=== PATIENT | female | born 1975 | race Caucasian/White ===

== ENCOUNTER → 2020-07-06 | Outpatient (CLI) | payer BC ==
[~2020-07-06] VITALS: Ht 160 cm; Wt 52.2 kg
[~2020-07-06] MED LIST: CALCIUM; FISHOIL; FLEXERIL PO; IBU600 MG PO; KRILL OIL 5001 EAC1 PO; MOVE FREE JOIN1 EACH PO; VITAMIN D31250 MC1 PO; VITAMIN D400 UNI1
[2020-07-06 14:26] VITALS: BP 128/73
--- NOTE | 2020-07-06 14:47 | NUR ---
Pain Clinic Assessment: 1. History of Osteoarthritis: Not Applicable History of Rheumatoid Arthritis: Not Applicable 2. Height: 5 ft. 3 in. 160.0 cm. Weight: 115.0 lb. oz. 52.164 kg. Patient's BMI: 20.4 3. Vital Signs: BP: 128/73 Pulse: 92 Resp: 14 Temp: 02 Sat: 100 ECG Mon: 4. Pain Intensity: 4 5. Fall Risk: Dizziness: N Needs help standing or walking: N Fallen in the last 3 months: N Fall risk comments: 6. Patient on Blood Thinner: None 7. History of Hypertension: N 8. Opioid Therapy greater than 6 weeks: N Opiate Contract Signed: 9. Risk Assessment Tool Provided: LOW-0 10. Functional Assessment Tool: 11. Recreational Drug Use: Never Drug Type: Tobacco Use: Former Smoker Tobacco Type: Amount or Packs/day: How Many Years: Alcohol Use: Yes Frequency: Weekly Quant: DRINKS MAGED IN COFFEE
--- NOTE | 2020-07-07 11:01 | HPC ---
[facility] [address] [address] PAIN MANAGEMENT CONSULTATION Name: SEAN SAMAYOA Room #: REG [facility].#: [id number] Admission: 07/06/20 Attend Phys: Alan Marin DO Discharge: Date of : 79 Report #: [id number] THIS REPORT FOR: cc: Audra Kumar DNP, Mary E. DNP Johnson, James E. DO ~ DATE OF SERVICE: 07/06/2020 REFERRING PHYSICIAN: Audra Kumar NP CHIEF COMPLAINT: Low back pain, left lower extremity pain with paresthesias. HISTORY OF PRESENT ILLNESS: As you know, the patient is a very pleasant 45-year-old female who returns to our clinic at our [facility] office for recurrent low back pain, left lower extremity pain with paresthesias. The patient was last seen in our clinic at [facility] in 2017 where she was diagnosed with lumbar radiculopathy secondary to the displacement of lumbar intervertebral disk and compression upon a nerve root. She underwent epidural injections times 2 and did ultimately receive good improvement in analgesia. She states she was in her normal state of health until recently where she began to experience recurrence of left low back pain, left lower extremity pain. She states her pain began spontaneously upon arising from bed on 06/24/2020. The patient denies injury or trauma that may have led to symptom development. 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 She continues to experience pain to the level that she was ultimately referred back to our clinic at our [facility] office to discuss treatment options for recurrent lumbar radiculopathy. The patient indicates today her pain is constant with intermittent exacerbations. She describes her pain as burning, shooting, sharp, numbness and tingling. She places current pain score 4/10, daily average of 4/10, worst pain has been 8/10. The patient states that bending, sneezing and stretching exacerbates symptoms. She states that lying on her side with her knees bent tend to improve pain. She has been referred to our clinic for recurrent lumbar radiculopathy with increased intensity and distributional change. PAST MEDICAL HISTORY: None. PAST SURGICAL HISTORY: 1. Breast augmentation. 2. Eye surgery. [address] [address] PAIN MANAGEMENT CONSULTATION Name: SEAN SAMAYOA Room #: REG CLI [facility]#: [id number] Admission: 07/06/20 Attend Phys: Alan Marin DO Discharge: Date of : 79 Report #: [id number] 3. Tympanoplasty. SOCIAL HISTORY: The patient denies tobacco, IV or illicit drug use. She admits to occasional alcohol beverage. 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 She is unaccompanied today. Pain impact score 25/70, cius-st-eejcjujw interference of daily activities secondary to pain. REVIEW OF SYSTEMS: Positive for low back pain, left lower extremity pain with paresthesias. All other review of systems negative per 12-point review of systems other than those listed in history of present illness. ALLERGIES: No known drug allergies. CURRENT MEDICATIONS: Cholecalciferol 1250 mcg per day, Krill oil 500 mg once a day, glucosamine and chondroitin 1 tab per day, ibuprofen 600 mg once a day, Flexeril 10 mg t.i.d. p.r.n. muscle spasms. IMAGING: No new imaging available. PHYSICAL EXAMINATION: VITAL SIGNS: Blood pressure 128/73, pulse 92, respiratory rate 14 and unlabored. The patient is 100% on room air. Height 5 feet 3 inches tall, weight 115 pounds, BMI calculated 20.4. GENERAL: Well-developed, well-nourished, well-hydrated 45-year-old female appearing stated age, placing current pain score 4/10. HEENT: Normocephalic, atraumatic. Pupils equal, round and reactive. Extraocular muscles are intact. Sclerae nonicteric without injection. NEUROLOGIC: Cranial nerves 2-12 grossly intact. Speech is fluent. LUNGS: Appear clear. No wheeze, rhonchi or rales. CARDIOVASCULAR: Regular. No appreciable gallop, no rub. ABDOMEN: Soft, nontender. EXTREMITIES: Show no clubbing, no cyanosis, no edema. MUSCULOSKELETAL: The patient has tenderness to palpation over the lower lumbar spine. left side specifically. No spinous process tenderness. Muscle bulk and tone is equal and symmetrical in lower extremities. Strength is equal and symmetrical 5/5. Slight giveaway strength noted with hip flexion due to pain on the left when compared to the right. Seated straight leg raising positive on the left at approximately 70-degree angle. Supine straight leg raising is positive on the left at 70-degree angle. Ankle clonus negative. Babinski is negative. Gait is mildly antalgic favoring left lower extremity. She is intact to light touch from L1 through S2 dermatomes. ASSESSMENT: [facility] [address] [place] [address] PAIN MANAGEMENT CONSULTATION Name: SEAN SAMAYOA Room #: REG CL [facility]#: [id number] Admission: 07/06/20 Attend Phys: Alan Marin DO Discharge: Date of : 79 Report #: [id number] 1. Symptomatic lumbar radiculopathy. 2. Lumbosacral spondylosis with radiculopathy. PLAN: 1. Based on today's physical exam and history the patient has provided, the description the patient uses in regards to pain as well as the distribution of symptoms, likely source of the patient's pain is lumbar radiculopathy. The patient underwent MRI lumbar spine on 03/29/2017 which showed L1-L2, L3-L4 unremarkable. L4-L5 had annular disk bulge with flattening of the ventral thecal sac. There was no neural foraminal stenosis at that time. At L5-S1, there was an annular disk bulge with moderate sized caudally migrated left paracentral disk herniation with effacement of the anterior epidural space with mild compression of the left S1 nerve root within the left lateral recess of L5. The patient had recurrence of symptoms with a similar distribution starting 06/24/2020. The patient denied injury or trauma that may have led to symptom development. Given the intensity of symptoms the patient is experiencing and the slight distribution change with now radiation from the left low back all the way to the foot and increasing cramping sensation in the calf, I would recommend the treatment options as follows: We discussed with the patient the fact that the imaging we have currently is greater than 3 years old and that those findings have likely changed since that time and thus treatment options may vary based on those new findings. I do feel that imaging would be necessary, but we did discuss the general treatment options today. The following was discussed with the patient today. We discussed physical therapy, stretching exercises and core strengthening as a treatment option. We discussed medication management to address neuropathic symptoms with amitriptyline, nortriptyline, Cymbalta, Lyrica or gabapentin. We discussed epidural injections under fluoroscopic guidance to address acute lumbar radicular symptoms in hopes of improving pain. We discussed spinal cord stimulator therapy and ultimately surgical options. The patient is considering her options including surgery, but does wish further imaging to determine whether or not surgical options would be necessary or whether more conservative treatment options would be beneficial. 2. The patient will be sent for x-ray imaging of the lumbar spine. This will be done immediately. We will review those findings once they are available. We will contact the patient with those findings. 3. We recommend the patient to undergo MRI of the lumbar spine without contrast. We wish to further evaluate the findings at the L5-S1 level, which showed a caudal migration of disk into the left lateral recess at L5-S1 and determine if this has progressed. If progression has been noted, surgical options may be necessary. The patient is amenable to discussing surgical options if the changes are noted. We recommend the patient to undergo MRI imaging as quickly as possible. Once this imaging has been completed, we will contact the patient or have her return to discuss the findings and the options of treatment based on those objective findings and the objective findings of [address] [address] PAIN MANAGEMENT CONSULTATION Name: SEAN SAMAYOA Room #: REG [facility] Wall#: [id number] Admission: 07/06/20 Attend Phys: Alan Marin DO Discharge: Date of : 79 Report #: [id number] physical exam. The patient was provided a prescription for MRI lumbar spine without contrast today. 4. No medication changes made at today's visit. We did discuss the possibility of initiating neuropathic medications, but the patient is resistant to initiate medication that might cause any cognition changes. I did advise that neuropathic medications all can have cognitive slowing as part of their side effects and she is resistant to initiate the therapy at this time. 5. We will see the patient back in followup visit once the imaging has been obtained. The imaging will be available on the cloud for the patient once it has been completed and we can review those findings at her earliest convenience. 6. We wish to thank the referring physician for the opportunity to see the patient in consultation. We will keep you apprised of the patient's progress as we address lumbar radiculopathy. Again, we wish to thank you for the opportunity to see this patient in consultation. <ELECTRONICALLY SIGNED> By: Alan Marin DO 07/07/20 1101 [id number] Alan Marin DO /nt
== END ==
LOC: PAIN 06:59
PROVIDERS: ATTEND Anesthesiology Pain Medicine
DX: M47.26 Other spondylosis with radiculopathy, lumbar region (principal); M79.662 Pain in left lower leg; R20.2 Paresthesia of skin; Z79.891 Long term (current) use of opiate analgesic; Z79.899 Other long term (current) drug therapy

== ENCOUNTER → 2020-08-23 | Outpatient (CLI) | payer BC | LOC: LAB 09:59 | PROVIDERS: ATTEND Internal Medicine Cardiovascular Disease | DX: Z20.828 Contact with and (suspected) exposure to other viral communicable diseases (principal) ==

== ENCOUNTER → 2021-01-18 | Outpatient (CLI) | payer BC | LOC: LAB 08:23 | PROVIDERS: ATTEND Anesthesiology | DX: Z01.812 Encounter for preprocedural laboratory examination (principal); Z20.822 Contact with and (suspected) exposure to COVID-19 ==